=== PATIENT | male | born 1945 | race Caucasian/White ===

== ENCOUNTER 2023-09-05 09:20 | Observation (INO) ==
--- NOTE | 2023-08-14 14:53 | PAT Medication Instructions ---
Medication Instructions Date of Service August 14, 2023 Home Medications azithromycin 250 mg tablet 250 mg PO BID Take morning of surgery With a small sip of water, OTHERWISE NOTHING TO EAT OR DRINK AFTER MIDNIGHT: azithromycin 250 mg tablet 250 mg PO BID Take evening before surgery azithromycin 250 mg tablet 250 mg PO BID Other Notes If you have any questions please call us at [phone] or [phone] or [phone] or [phone]
--- NOTE | 2023-08-23 11:08 | Anesthesiology Consultation ---
Date of Service August 23, 2023 Assessment & Plan (1) Encounter for pre-operative examination: - Infectious disease screening: Per assessment on 08/23/23: No known infectious disease contacts or current infectious disease symptoms. No noted recent Covid positive test result. - Outpatient joint assessment: Pt currently scheduled for inpatient pathway. If surgeon requests review for outpatient joint pathway, patient is not recommended candidate for outpatient joint program from anesthesia standpoint. - PCP visit (08/14/23): "Patient is medically cleared" - Preop testing: Patient refusing labs at [facility] after one tech attempt indicating that he wishes labs to be drawn at [facility]. Patient advised recommendation to obtain preop labs as soon as possible. Patient acceptable risk for surgery pending surgeon-ordered preop labs (TBD [facility]). Chart Review Chart Review: Patient seen in Pre Admission Testing Teaching & Discussion Pre-Anesthesia Teaching/Discussion Notes: Instructed NPO after midnight before surgery,except medications with 15 cc of water. Medication instructions provided according to the [facility] guidelines. History Surgery Operation Date: 09/05/23 13:15 Proposed Procedures p Right Total Knee Arthroplasty - Forrest Wells MD Height/Weight Height: 5 ft 8.5 in Weight: 101.6 kg Allergies Allergy/AdvReac Type Severity Reaction Status Date / Time Penicillins Allergy Severe Hives Verified 08/14/23 13:05 shellfish derived Allergy Severe Hives Verified 08/14/23 13:05 Medications Home Medications Medication Instructions Recorded Confirmed Last Taken tramadol 1 dose PO DAILY PRN Pain 08/23/23 08/23/23 Unknown Past Medical History Medical History History of claustrophobia History of COVID-19 03/2022- mild flu symptoms, treated with paxlovid > no current issues Hx of Lyme disease 1980s, no current issues Hx of [place] spotted fever 2012 Osteoarthritis Exercise / Class Metabolic Activity II 4-5 Yardwork/Stairs/Walk up hill Past Family History Family History Other No family history of adverse response to anesthesia Past Surgical History Surgical History History of tonsillectomy History of cataract surgery left S/P lumbar laminectomy H/O lumbar discectomy H/O tooth extraction x2 07/2023 Past Anesthesia History No Hx of Anesthesia Complications and No Family Hx of Anesthesia Complications History of PONV No Hx of PONV and No Hx of Motion Sickness Social History Smoking Status: Former smoker Do You Dip or Chew Tobacco: No Smoking End Date: Hx Alcohol Use: No Hx Substance Use: No substance use type: does not use Review of Systems Patient had tooth extraction 07/31/23 and 08/10/23 r/t infection/abscess. Site healed and patient completed antibiotics. Patient denies chest pain, shortness of breath, dyspnea on exertion, fever, chills, cough, wheezing, palpitations. Physical Exam Vital Signs VITALS BP 137/74 P 82 TEMP 98.0 SP02 96%RA RESP 16 PHYSICAL Full cervical extension range of motion. Full TMJ range of motion. TMD 3 finger breaths (difficult to palpate) Mallampati Score 1 Dentition: several missing teeth Lungs: clear throughout to auscultation Cardiac: regular rate and rhythm, no murmurs noted Spine: normal Carotid arteries: negative bruit Extremities: no LE edema Testing Electrocardiogram Date: 08/23/23 Findings: + NSR @ (76) Chest X-Ray Date: 08/23/23 FINDINGS: PA and lateral chest radiographs are obtained. No prior studies are available for comparison at the time of dictation. The heart is mildly enlarged noting atherosclerotic calcification of the thoracic aorta. The pulmonary vasculature is noncongested. Nonspecific interstitial thickening is likely chronic. There is bibasilar scarring/atelectasis. The lungs and pleural spaces are otherwise clear. There is no pneumothorax. The skeletal structures are osteopenic. The bony thorax appears intact. Degenerative change is noted in the shoulders and spine. IMPRESSION: Mild cardiomegaly with no active disease in the chest.
--- NOTE | 2023-09-02 18:58 | History & Physical Report ---
Date of Service September 02, 2023 Assessment & Plan (1) Primary osteoarthritis of right knee: Plan: Treatment options discussed with the patient. They have failed conservative measures and wished to proceed with surgery. Risks, benefits and alternatives to surgery including but not limited to infection, DVT, pain, stiffness, need for revision surgery, damage to blood vessels, damage to nerves, PE, , were discussed with the patient and they wish to proceed. Plan for right total knee arthroplasty scheduled for September 05 at [facility] with Dr. Wells. Plan on aspirin 81 mg twice daily for 1 month postop for DVT prophylaxis. Plan on home health therapy postop. All questions answered. Patient will follow-up postoperatively. History of Present Illness Chief Complaint: Right knee pain Primary Care Provider: Cecil Burkett PA-C 78-year-old male with no significant past medical history who presents with ongoing right knee pain. Pain is interfering with his daily activities. He has failed conservative measures and wishes to proceed with surgery. Patient denies headaches, sweats, fevers, chills, double vision, blurred vision, cough, sore throat, dysphagia, chest pain, sob, wheezing, n/v/d/c, numbness, tingling, fatigue, urinary symptoms, mood disorders. ROS positive for right knee pain and stiffness. Allergies Allergy/AdvReac Type Severity Reaction Status Date / Time Penicillins Allergy Severe Hives Verified 08/14/23 13:05 shellfish derived Allergy Severe Hives Verified 08/14/23 13:05 Home Medications Medication Instructions Recorded Confirmed Type tramadol 1 dose PO DAILY PRN Pain 08/23/23 08/23/23 History Past Med/Surg History Medical History History of claustrophobia History of COVID-19 03/2022- mild flu symptoms, treated with paxlovid > no current issues Hx of Lyme disease , no current issues Hx of [place] spotted fever 2011 Osteoarthritis Surgical History History of tonsillectomy History of cataract surgery left S/P lumbar laminectomy H/O lumbar discectomy H/O tooth extraction x2 07/2023 Family History Other No family history of adverse response to anesthesia Social History Smoking Status: Former smoker Tobacco Type: Cigarettes Smoking End Date: ; Second Hand Exposure: No; Do You Dip or Chew Tobacco: No; Tobacco Cessation Education Requested by Patient: No Hx Alcohol Use: No Hx Substance Use: No Preferred Language: Japanese Communication Ability: Effective Hot Metal Mixer Operator Required: No Beliefs That Will Affect Care: None Current Living Situation: Spouse Other Information That Helps Us Care for You: No Feels Safe at Home: Yes Safety Concerns: Feels Safe At This Time Assistive Devices: Glasses Assistive Devices Comment: dental implants Review of Systems All systems reviewed & are unremarkable except as noted in HPI & below Physical Exam Constitutional: well developed and well nourished; no acute distress Eyes: PERRL, conjunctivae normal, anicteric sclerae ENMT: external ear and nose normal, oropharynx normal Neck: trachea midline, no thyromegaly Respiratory: normal respiratory effort, lungs clear to auscultation Cardiovascular: RRR, no murmur, no edema Musculoskeletal: Right knee: Varus alignment. Mild effusion. Tenderness medial joint line. There is crepitation with range of motion. Range of motion is 10 to 120 deg tao. Stable to valgus and varus stress test. Skin: no rashes, warm and dry Neurologic: patellar DTR's 2+ bilat, sensation intact Psychiatric: A+Ox3, euthymic affect Results & Data Diagnostic Findings X-rays right knee demonstrate he has varus knee with subluxation of the femur medially on the tibia with [id number] medial compartment with bone loss. He has tricompartmental arthritic changes. He has tricompartmental arthritic changes.
[~2023-09-05 09:20] MED LIST: ACETAMINOPHEN 500 MG TAB PO SCH; CeleBREX 200 MG CAP PO SCH; FAMOTIDINE 20 MG TAB PO SCH; GABAPENTIN 300 MG CAP PO SCH; LR 500ML BOLUS, THEN 15ML/HR IV SCH; LR 60ML/HR IV SCH; METOCLOPRAMIDE HCL 10 MG TABLET PO SCH; ROPIV 0.5% 246mg, Ketorolac 30mg, EPINEPHrine 0.5mg in NSS INFIL SCH; ROPIVACAINE 0.5% 5 MG/ML 30 ML VIAL ONE; TRANEXAMIC ACID 1,000 MG **IV Intra-op IV SCH; TRANEXAMIC ACID 1,000 MG **IV Pre-op IV SCH; VANCOMYCIN HCL 1,500 MG in SODIUM CHLORIDE 0.9% 500 ML IV SCH; dexAMETHasone**PF** 10 MG/ML VIAL IV SCH
--- OUTSIDE RECORDS SUMMARY | 2023-09-05 10:26 | External Medical Summary | Summary of Care ---
Author Name Unknown Organization [facility] Address [address] [place] [address] Phone [phone] Care Team Providers Care Customer Experience Manager Name Role Phone Cecil Burkett PA-C Primary Care Provider [phone] Reason for Visit * Reason Comments Outpatient Testing Encounter Details Date Type Department Care Team (Late st Contact Info) Description 08/27/2023 2:00 PM [facility] Laboratory Laboratory Patient Service [address] [phone] [address] Pre-procedural laboratory examination* Allergies Active Allergy Reactions Criticality Noted Date Comments Penicillins Rash 09/12/2017 Shellfish Allergy Anaphylaxis High 09/12/2017 documented as of this encounter (statuses as of 08/27/2023) Medications Medication Sig Dispensed Refills Start Date End Date Status Turmeric 500 MG Oral Capsule Take 1 Capsule by mouth in the morning. 0 Active tiZANidine HCl 2 MG Oral Tablet (Zanaflex) Take 1 Tablet by mouth every 8 hours as needed for Muscle spasms. 90 Tablet 0 09/05/2022 Active traMADol HCl 50 MG Oral Tablet (Ultram) Take 1 Tablet by mouth every 6 hours as needed for Pain, Severe. 30 Tablet 0 06/27/2023 Active Erythromycin Base 250 MG Oral Tablet 0 08/08/2023 Active Betamethasone Valerate 0.1 % External Lotion Apply to the scalp/behind the ears twice daily for 1-2 weeks as needed 60 mL 51 08/21/2023 Active documented as of this encounter (statuses as of 08/27/2023) Active Problems Problem Noted Date Diagnosed Date Chronic kidney disease, stage 3a 12/26/2021 Overview: Per CKD protocol Unspecified inflammatory spondylopathy, lumbar r egion 06/21/2021 Osteoarthritis of spine with radiculopathy, cerv ical region 05/13/2018 Osteoarthritis of spine with radiculopathy, lumb ar region 05/13/2018 H/o Lyme disease 10/29/2017 documented as of this encounter (statuses as of 08/27/2023) Resolved Problems Problem Noted Date Diagnosed Date Resolved Date Prediabetes 12/26/2021 03/01/2023 Overview: Per Prediabetes protocol Chronic kidney disease with symptom management only, stage 3 (moderate) 04/02/202009/2020 Tinea pedis of both feet 10/04/201702/2020 documented as of this encounter (statuses as of 08/27/2023) Immunizations Name Administration Dates Next Due TDAP (age 10 and older)(Boostrix) 04/16/2012 documented as of this encounter Social History Tobacco Use Types Packs/Day Years Used Date Smoking Tobacco: Never Smokeless Tobacco: Never Alcohol Use Standard Drinks/Week Comments No 0 (1 standard drink = 0.6 oz pur e alcohol) PHQ-2 Answer Date Recorded PHQ-2 Score 0 07/06/2020 Hunger Vital Sign Answer Date Recorded Within the past 12 months, y ou worried that your food would run out before you got the money to buy more. Never true 06/27/20 23 Within the past 12 months, t he food you bought just didn't last and you didn't have money to get more. Never true 06/27/2023 Sex and Gender Information Value Date Recorded Sex Assigned at Male 07/29/2019 11:07 AM EST Gender Identity Male 07/29/2019 11:07 AM EST Sexual Orientation Straight 07/29/2019 11 :07 AM EST Job Start Date Occupation Industry Not on file Not on file Not on file documented as of this encounter Miscellaneous Notes * Addendum Note - Delano Davidson TECH - 08/27/2023 2:09 PM ESTAddended by: DELANO DAVIDSON on: 08/27/2023 02:09 PM Modules accepted: Orders documented in this encounter Plan of Treatment Upcoming Encounters Date Type Department Care Team ([facility] st Contact Info) Description 01/30/2024 9:20 AM EDT Office Visit Dermatology [address] [phone] Obed Dawkins PA-C [address] [place] [address] [phone] Pending Results Name Type Priority Associated Diagnoses Date /Time BASIC METABOLIC PANEL Lab Routine Pre-procedural laboratory examination 08/27/2023 2:09 PM EST CBC WITH WBC DIFFERENTIAL Lab Routine Pre-procedural laboratory examination 08/27/2023 2:09 PM EST PT INR Lab Routine Pre-procedural laboratory examination 08/27/2023 2:09 PM EST URINALYSIS WITH MICROSCOPIC EXAM Lab Routine Pre-procedural laboratory examination 08/27/2023 2:09 PM EST TYPE AND SCREEN Lab Routine Pre-procedural laboratory examination 08/27/2023 2:10 PM EST CBC Lab Routine Pre-procedural laboratory examination 08/27/2023 2:09 PM EST DIFFERENTIAL, AUTOMATED Lab Routine Pre-procedural laboratory examination 08/27/2023 2:09 PM EST Scheduled Orders Name Type Priority Associated Diagnoses Orde r Schedule APTT Lab Routine Pre-procedural laboratory examination Ordered: 08/27/2023 TYPE AND SCREEN Lab Routine Pre-procedural laboratory examination Expected: 08/28/2023, Expires: 09/27/2024 Health Maintenance Due Date Last Done Comments COVID-19 Vaccine (#1) 1945 Zoster Vaccines (1 of 2) 1993 Pneumococcal Vaccine: 65+ Years (1 - PCV) 01/21/2008 Depression Screening 07/06/2021 07/06/2020 Albumin/Creatinine Ratio 07/09/2021 07/09/2020 DTaP,Tdap,and Td Vaccines (2 - Td or Tdap) 04/16/2022 04/16/2012 Influenza Vaccine (FLU shot) (#1) 2023 GFR 08/15/2023 02/13/2023, 01/19, 07/20/2021, Additional history exists CKD HGB USE SMARTSET 44625 02/14/202402/13, 02/15/2022, 07/20/2021, Additional history exists CKD PHOS USE SMARTSET 15425 02/14/202401/19, 02/15/2022, 07/20/2021, Additional history exists GARDASIL-HPV IMMUNIZATION SERIES Aged Out No longer eligible based on patient's age to complete this topic Hepatitis B Aged Out No longer eligi ble based on patient's age to complete this topic MENINGOCOCCAL (MENACTRA/MENVEO) Aged Out No longer eligible based on patient's age to complete this topic documented as of this encounter Medical Devices Not on filedocumented as of this encounter Visit Diagnoses Diagnosis Pre-procedural laboratory examination- Primary documented in this encounter Advance Directives Latest Code Status on File Code Status Date Activated Date Inactivated Comments Full Code 08/19/2020 6:08 AM 08/19/2020 4:35 PM Thi s order reflects the patients wishes and were consensually agreed upon. Care Teams Customer Experience Manager Relationship Specialty Start Date End Date Cecil Burkett PA-C [address] [place], [place] [address] [id number] PCP - General Physician Assistant Merchandise Manager 07/29/19 documented as of this encounter
--- OUTSIDE RECORDS SUMMARY | 2023-09-05 10:26 | External Medical Summary | Summary of Care ---
Author Name Unknown Organization [facility] Address [address] [place] [address] Phone [phone] Care Team Providers Care Basket Grader Name Role Phone Cecil Burkett PA-C Primary Care Provider [phone] Reason for Visit * Reason Comments Outpatient Testing Encounter Details Date Type Department Care Team (Late st Contact Info) Description 08/27/2023 2:00 PM [facility] Laboratory Laboratory Patient Service [address] [phone] [address] Pre-procedural laboratory examination* Allergies Active Allergy Reactions [...] Upcoming Encounters Date Type Department Care Team ([facility] st Contact Info) Description 01/30/2024 9:20 AM EDT Office Visit Dermatology [address] [phone] Obed Dawkins PA-C [address] [place] [address] [phone] Pending Results Name Type Priority Associated Diagnoses Date /Time BASIC METABOLIC PANEL Lab Routine Pre-procedural laboratory examination 08/27/2023 2:09 PM EST CBC WITH WBC DIFFERENTIAL Lab Routine Pre-procedural laboratory examination 08/27/2023 2:09 PM EST PT INR Lab Routine Pre-procedural laboratory examination 08/27/2023 2:09 PM EST APTT Lab Routine Pre-procedural laboratory examination 08/27/2023 2:10 PM EST URINALYSIS WITH MICROSCOPIC EXAM Lab Routine Pre-procedural laboratory examination 08/27/2023 2:09 PM EST TYPE AND SCREEN Lab Routine Pre-procedural laboratory examination 08/27/2023 2:10 PM EST CBC Lab Routine Pre-procedural laboratory examination 08/27/2023 2:09 PM EST DIFFERENTIAL, AUTOMATED Lab Routine Pre-procedural laboratory examination 08/27/2023 2:09 PM EST Scheduled Orders Name Type Priority Associated Diagnoses Orde r Schedule TYPE AND SCREEN Lab Routine Pre-procedural laboratory [...] Additional history exists CKD HGB USE SMARTSET 44972 02/14/202402/13, 02/15/2022, 07/20/2021, Additional history exists CKD PHOS USE SMARTSET 57123 02/14/202401/19, 02/15/2022, 07/20/2021, Additional history exists GARDASIL-HPV [...] and were consensually agreed upon. Care Teams Basket Grader Relationship Specialty Start Date End Date Cecil Burkett PA-C [address] [place], [place] [address] [address] PCP - General Physician Candy Supervisor 07/29/19 documented as of this encounter
--- OUTSIDE RECORDS SUMMARY | 2023-09-05 10:26 | External Medical Summary | Summary of Care ---
Author Name Unknown Organization [facility] Address [address] [place] [address] Phone [phone] Care Team Providers Care Oxygen Equipment Aide Name Role Phone Cecil Burkett PA-C Primary Care Provider [phone] Reason for Visit * Reason Comments Outpatient Testing Encounter Details Date Type Department Care Team (Late st Contact Info) Description 08/27/2023 2:00 PM [facility] Laboratory Laboratory Patient Service [address] [phone] [address] Pre-procedural laboratory examination* Allergies Active Allergy Reactions [...] Upcoming Encounters Date Type Department Care Team ([facility] st Contact Info) Description 01/30/2024 9:20 AM EDT Office Visit Dermatology [address] [phone] Obed Dawkins PA-C [address] [place] [address] [phone] Pending Results Name Type Priority Associated Diagnoses [...] Additional history exists CKD HGB USE SMARTSET 30769 02/14/202402/13, 02/15/2022, 07/20/2021, Additional history exists CKD PHOS USE SMARTSET 31146 02/14/202401/19, 02/15/2022, 07/20/2021, Additional history exists GARDASIL-HPV [...] and were consensually agreed upon. Care Teams Oxygen Equipment Aide Relationship Specialty Start Date End Date Cecil Burkett PA-C [address] [place], [place] [address] [address] PCP - General Physician Recyclable Materials Distributor 07/29/19 documented as of this encounter
--- OUTSIDE RECORDS SUMMARY | 2023-09-05 10:26 | External Medical Summary | Summary of Care ---
Author Name Unknown Organization [facility] Address [address] [place] [address] Phone [phone] Care Team Providers Care Educational Fundraising Director Name Role Phone Cecil Burkett PA-C Primary Care Provider [phone] Reason for Visit * Reason Comments Outpatient Testing Encounter Details Date Type Department Care Team (Late st Contact Info) Description 08/27/2023 2:00 PM [facility] Laboratory Laboratory Patient Service [address] [phone] [address] Pre-procedural laboratory examination* Allergies Active Allergy Reactions [...] Upcoming Encounters Date Type Department Care Team ([facility] st Contact Info) Description 01/30/2024 9:20 AM EDT Office Visit Dermatology [address] [phone] Obed Dawkins PA-C [address] [place] [address] [phone] Pending Results Name Type Priority Associated Diagnoses [...] Additional history exists CKD HGB USE SMARTSET 29018 02/14/202402/13, 02/15/2022, 07/20/2021, Additional history exists CKD PHOS USE SMARTSET 13675 02/14/202401/19, 02/15/2022, 07/20/2021, Additional history exists GARDASIL-HPV [...] and were consensually agreed upon. Care Teams Educational Fundraising Director Relationship Specialty Start Date End Date Cecil Burkett PA-C [address] [place], [place] [address] [address] PCP - General Physician Hotel Director 07/29/19 documented as of this encounter
--- OUTSIDE RECORDS SUMMARY | 2023-09-05 10:26 | External Medical Summary | Summary of Care ---
Author Name Unknown Organization [facility] Address [address] [place] [address] Phone [phone] Care Team Providers Care Batch Operator Name Role Phone Cecil Burkett PA-C Primary Care Provider [phone] Reason for Visit * Reason Comments Outpatient Testing Encounter Details Date Type Department Care Team (Late st Contact Info) Description 08/27/2023 2:00 PM [facility] Laboratory Laboratory Patient Service [address] [phone] [address] Pre-procedural laboratory examination* Allergies Active Allergy Reactions [...] Upcoming Encounters Date Type Department Care Team ([facility] st Contact Info) Description 01/30/2024 9:20 AM EDT Office Visit Dermatology [address] [phone] Obed Dawkins PA-C [address] [place] [address] [phone] Pending Results Name Type Priority Associated Diagnoses Date /Time BASIC METABOLIC PANEL Lab Routine Pre-procedural laboratory examination 08/27/2023 2:09 PM EST CBC WITH WBC DIFFERENTIAL Lab Routine Pre-procedural laboratory examination 08/27/2023 2:09 PM EST PT INR Lab Routine Pre-procedural laboratory examination 08/27/2023 2:09 PM EST URINALYSIS WITH MICROSCOPIC EXAM Lab Routine Pre-procedural laboratory examination 08/27/2023 2:09 PM EST CBC Lab Routine Pre-procedural laboratory [...] Additional history exists CKD HGB USE SMARTSET 17291 02/14/202402/13, 02/15/2022, 07/20/2021, Additional history exists CKD PHOS USE SMARTSET 81169 02/14/202401/19, 02/15/2022, 07/20/2021, Additional history exists GARDASIL-HPV [...] and were consensually agreed upon. Care Teams Batch Operator Relationship Specialty Start Date End Date Cecil Burkett PA-C [address] [place] [address] [place] [address] PCP - General Physician Ski Patrol Director 07/29/19 documented as of this encounter
--- OUTSIDE RECORDS SUMMARY | 2023-09-05 10:26 | External Medical Summary | Summary of Care ---
Author Name Unknown Organization [facility] Address [address] [place] [address] Phone [phone] Care Team Providers Care Services Account Manager Name Role Phone Cecil Burkett PA-C Primary Care Provider [phone] Reason for Visit * Reason Onset Date Comments Health Maintenance 08/30/2023 Encounter Details Date Type Department Care Team ([facility] Contact Info) Description 08/30/[address] [place] [phone] Cecil Burkett PA-C [address] [place] [phone] Health Maintenance Allergies Active Allergy Reactions Criticality Noted Date Comments Penicillins Rash 09/12/2017 Shellfish Allergy Anaphylaxis High 09/12/2017 documented as of this encounter (statuses as of 08/30/2023) Medications Medication Sig Dispensed Refills Start Date [...] as of this encounter (statuses as of 08/30/2023) Active Problems Problem Noted Date Diagnosed Date Chronic kidney disease, stage 3a 12/26/2021 Overview: Per CKD protocol Unspecified inflammatory spondylopathy, lumbar r egion 06/21/2021 Osteoarthritis of spine with radiculopathy, cerv ical region 05/13/2018 Osteoarthritis of spine with radiculopathy, lumb ar region 05/13/2018 H/o Lyme disease 10/29/2017 documented as of this encounter (statuses as of 08/30/2023) Resolved Problems Problem Noted Date Diagnosed Date Resolved Date Prediabetes 12/26/2021 03/01/2023 Overview: Per Prediabetes protocol Chronic kidney disease with symptom management only, stage 3 (moderate) 04/02/202009/2020 Tinea pedis of both feet 10/04/201702/2020 documented as of this encounter (statuses as of 08/30/2023) Immunizations Name Administration Dates Next Due TDAP [...] as of this encounter Miscellaneous Notes * Telephone Encounter - Megha Mondragon LPN - 08/30/2023 10:56 AM EST Care Gaps Comprehensive Care Outreach Last Office/Telemedicine Visit: 08/14/2023 (in office), Visit date not found (telemedicine) Next Office Visit: Visit date not found Hemoglobin AIC Results: Lab Results Component Value Date/Time HEMOGLOBIN A1C - [facility] 5.4 02/13/2023 09:18 AM HEMOGLOBIN A1C - [facility] 5.9 (H) 07/20/2021 04:15 PM HEMOGLOBIN A1C - [facility] 5.6 01/16/2018 03:26 PM Reviewed Health Maintenance below: Health Maintenance Topic Date Due COVID-19 Vaccine (1) Never done Zoster Vaccines (1 of 2) Never done Pneumococcal Vaccine: 65+ Years (1 - PCV) Never done Depression Screening 07/06/2021 Albumin/Creatinine Ratio 07/09/2021 DTaP,Tdap,and Td Vaccines (2 - Td or Tdap) 04/16/2022 Influenza Vaccine (FLU shot) (1) Never done Care Gap Outreach Action Taken: [employer] message sent documented in this encounter Plan of Treatment Upcoming Encounters Date Type Department Care Team ([facility] Contact Info) Description 01/30/2024 9:20 AM EDT Office Visit Dermatology [address] [phone] Obed Dawkins PA-C [address] [place] [phone] Health Maintenance Due Date Last Done Comments COVID-19 Vaccine (#1) 1945 Zoster Vaccines (1 of 2) 1993 Pneumococcal Vaccine: 65+ Years (1 - PCV) 01/21/2008 Depression Screening 07/06/2021 07/06/2020 Albumin/Creatinine Ratio 07/09/2021 07/09/2020 DTaP,Tdap,and Td Vaccines (2 - Td or Tdap) 04/16/2022 04/16/2012 Influenza Vaccine (FLU shot) (#1) 2023 CKD PHOS USE SMARTSET 05186 02/14/202401/19, 02/15/2022, 07/20/2021, Additional history exists GFR 02/25/2024 08/27/2023, 01/19, 02/15/2022, Additional history exists CKD HGB USE SMARTSET 73427 08/27/202408/27, 08/27/2023, 02/13/2023, Additional history exists GARDASIL-HPV IMMUNIZATION SERIES Aged [...] Not on filedocumented as of this encounter Advance Directives Latest Code Status on File Code Status Date Activated Date Inactivated Comments Full Code 08/19/2020 6:08 AM 08/19/2020 4:35 PM Thi s order reflects the patients wishes and were consensually agreed upon. Care Teams Services Account Manager Relationship Specialty Start Date End Date Cecil Burkett PA-C [address] [place], [place] [id number] [phone] PCP - General Physician Care Specialist 07/29/19 documented as of this encounter
--- OUTSIDE RECORDS SUMMARY | 2023-09-05 10:26 | External Medical Summary ---
Author Name Unknown Address Unknown Organization [id number][place] [facility] [place] [address] [facility] [address] Laboratory Report Ordering Provider Test Date Status IMELDA LIN 08/27/2023 14:10:34 Final Anticoagulation may affect t esting. Refer to [facility] Test Catalog for a list of effects. Observation Date Value Abnormality Reference (Units ) Status aPTT panel - Platelet poor plasma 08/27/2023 14:10:34 32 21-38 (seconds) Final Performing Location [facility] [place] [address] [facility] [address]
--- OUTSIDE RECORDS SUMMARY | 2023-09-05 10:27 | External Medical Summary ---
Author Name Unknown Address Unknown Organization [id number][place] [place] [address] [place] [address] Laboratory Report Ordering Provider Test Date Status IMELDA LIN 08/27/2023 14:09:51 Final Observation Date Value Abnormality Reference (Units ) Status Color of Urine by Auto 08/27/2023 14:09:51 Light Yellow Colorless, Light Yellow, Yellow, Dark Yellow Final Clarity, Urine 08/27/2023 14:09:51 Clear Clear Final Glucose [Mass/volume] in Urine by Automated test strip 08/27/2023 14:09:51 Negative Negative (mg/dL) Final Bilirubin.total [Presence] in Urine by Automated test strip 08/27/2023 14:09:51 Negative Negative Final Ketones [Mass/volume] in Urine by Automated test strip 08/27/2023 14:09:51 Negative Negative (mg/dL) Final Specific gravity, Urine 08/27/2023 14:09:51 1.008 1.003-1.030 Final Hemoglobin [Presence] in Urine by Automated test strip 08/27/2023 14:09:51 Negative Negative Final pH, Urine 08/27/2023 14:09:51 5.5 5.0-7.5 (Units) Final Protein [Mass/volume] in Urine by Automated test strip 08/27/2023 14:09:51 Negative Negative (mg/dL) Final Urobilinogen [Mass/volume] in Urine by Automated test strip 08/27/2023 14:09:51 Normal Normal (mg/dL) Final Nitrite [Presence] in Urine by Automated test strip 08/27/2023 14:09:51 Negative Negative Final Leukocyte esterase [Presence] in Urine by Automated test strip 08/27/2023 14:09:51 Negative Negative Final RBC, Urine 08/27/2023 14:09:51 0-2 0-2 (/HPF) Final WBC, Urine 08/27/2023 14:09:51 0-2 0-2 (/HPF) Final Bacteria [#/area] in Urine sediment by Microscopy high power field 08/27/2023 14:09:51 0-25 0-25 (/HPF) Final Performing Location [facility] [place] [facility] [address] [facility] [address]
--- OUTSIDE RECORDS SUMMARY | 2023-09-05 10:27 | External Medical Summary ---
Author Name Unknown Address Unknown Organization [id number]:[place] [facility] [place] [address] [facility] [address] Laboratory Report Ordering Provider Test Date Status IMELDA LIN 08/27/2023 14:09:51 Final Observation Date Value Abnormality Reference (Units ) Status WBC, Total 08/27/2023 14:09:51 8.78 4.00-10.80 (K/uL) Final RBC 08/27/2023 14:09:51 4.72 4.50-5.25 (M/uL) Final Hemoglobin 08/27/2023 14:09:51 15.3 14.0-16.8 (g/dL) Final HCT 08/27/2023 14:09:51 45.1 40.0-48.4 (%) Final MCV 08/27/2023 14:09:51 95.6 82.0-99.5 (fL) Final MCH 08/27/2023 14:09:51 32.4 27.0-34.0 (pg) Final MCHC 08/27/2023 14:09:51 33.9 32.0-36.0 (g/dL) Final RDW 08/27/2023 14:09:51 12.2 11.5-15.5 (%) Final Platelets 08/27/2023 14:09:51 231 140-400 (K/uL) Final MPV 08/27/2023 14:09:51 9.1 6.6-11.1 (fL) Final Nucleated erythrocytes/100 leukocytes [Ratio] in Blood by Automated count 08/27/2023 14:09:51 0 <=0 (/100 WBCs) Final Performing Location [facility] [place] [address] [facility] [address]
--- OUTSIDE RECORDS SUMMARY | 2023-09-05 10:27 | External Medical Summary ---
Author Name Unknown Address Unknown Organization [id number]:[facility] [place] - [address] [address] Laboratory Report Ordering Provider Test Date Status IMELDA LIN 08/27/2023 14:09:51 Final Observation Date Value Abnormality Reference (Units ) Status SYNC LEUKOCYTES IN BLOOD BY AUTOMATED COUNT 08/27/2023 14:09:51 8.78 4.00-10.80 (K/uL) Final Segs 08/27/2023 14:09:51 64.3 40.0-75.0 (%) Final Lymphs % 08/27/2023 14:09:51 22.6 18.0-42.0 (%) Final Monos 08/27/2023 14:09:51 7.6 1.0-11.0 (%) Final Eosinophils 08/27/2023 14:09:51 4.2 0.0-6.0 (%) Final Basos 08/27/2023 14:09:51 0.8 0.0-2.0 (%) Final Immature Granulocyte, Percent 08/27/2023 14:09:51 0.5 0.0-2.0 (%) Final Absolute Segs 08/27/2023 14:09:51 5.65 1.80-7.70 (K/uL) Final Lymphs, absolute 08/27/2023 14:09:51 1.98 1.00-4.80 (K/ul) Final Monos, Abs 08/27/2023 14:09:51 0.67 0.00-1.10 (K/uL) Final Eos, Abs 08/27/2023 14:09:51 0.37 0.00-0.70 (K/uL) Final Basos, Abs 08/27/2023 14:09:51 0.07 0.00-0.20 (K/uL) Final Immature Granulocytes, Number 08/27/2023 14:09:51 0.04 0.00-0.20 (K/uL) Final Performing Location [facility] [place] - [address] [facility] [address]
--- OUTSIDE RECORDS SUMMARY | 2023-09-05 10:27 | External Medical Summary ---
Author Name Unknown Address Unknown Organization K01:[facility] [place] [address] [place] [address] Laboratory Report Ordering Provider Test Date Status IMELDA LIN 08/27/2023 14:09:51 Final Observation Date Value Abnormality Reference (Units ) Status BUN 08/27/2023 14:09:51 20 6-20 (mg/dL) Final Creatinine 08/27/2023 14:09:51 1.2 0.6-1.2 (mg/dL) Final Glomerular filtration rate/1.73 sq M.predicted [Volume Rate/Area] in Serum, Plasma or Blood by Creatinine-based formula (CKD-EPI) 08/27/2023 14:09:51 60 >=60 (mL/min) Final eGFR is calculated based on the CKD-EPI 2020 equation SODIUM 08/27/2023 14:09:51 136 135-146 (m mol/L) Final Potassium 08/27/2023 14:09:51 4.0 3.5-5.1 (m mol/L) Final Cl 08/27/2023 14:09:51 99 98-107 (mm ol/L) Final CO2 08/27/2023 14:09:51 24 22-32 (mmo l/L) Final Anion gap 08/27/2023 14:09:51 13 7-15 (mmol /L) Final Glucose 08/27/2023 14:09:51 99 70-120 (mg /dL) Final Calcium 08/27/2023 14:09:51 9.8 8.4-10.2 ( mg/dL) Final Performing Location [facility] [place] [address] [place] [address]
[2023-09-05] MEDS ORDERED: HYDROmorphone INJ 2 MG/ML SYR/VIAL IV PRN (10:48)
[2023-09-05] MEDS ORDERED: ATROPINE SULFATE 0.1 MG/ML 10ML SYR IV PRN (10:48)
[2023-09-05] MEDS ORDERED: ONDANSETRON INJ 2 MG/ML 2 ML VIAL IV PRN ×2 (10:48→15:41)
[2023-09-05] MEDS ORDERED: ePHEDrine sulfate 50 MG/ML AMP IV PRN (10:48)
[2023-09-05] MEDS ORDERED: MIDAZOLAM HCL 1 MG/ML 2ML VIAL ONE (11:37)
[2023-09-05] MEDS ORDERED: fentaNYL citrate PF 100 MCG/2 ML VIAL ONE (11:37)
--- NOTE | 2023-09-05 11:51 | History & Physical Bridge Note ---
Date of Service September 05, 2023 History & Physical Bridge Note I have examined the patient, reviewed the History & Physical and in the interval since the performance of the History & Physical I have noted the following changes of clinical significance: no changes noted
[2023-09-05] MEDS ORDERED: ORTHO JOINT ANESTHETIC ONE (11:58)
[2023-09-05] MEDS ORDERED: PHENYLEPHRINE HCL 10 MG/ML VIAL ONE (13:11)
[2023-09-05] MEDS ORDERED: PROPOFOL IV EMULSION 10 MG/ML 20 ML VIAL IV ONE ×2 (13:11→14:07)
--- NOTE | 2023-09-05 14:42 | Post Operative Brief Note ---
Immediate Post Op Note v1 Date of Surgery September 05, 2023 Pre & Post Diagnosis Operation Date: 09/05/23 12:40 Pre-Op Diagnosis: Right Knee Osteoarthritis Post-Op Diagnosis: Right Knee Osteoarthritis I identified the patient and participated in the time-out.: Yes Procedure Operation Date: 09/05/23 12:40 Actual Procedures p Right Total Knee Arthroplasty(Right), mina and Acticoat superficial wound VAC- Forrest Wells MD Surgeon Forrest Wells MD Certified Scrum Master Fernando ZHU Estimated Blood Loss 5 Findings Consistent with Post-Op Diagnosis Specimens Bone cuts Drains Hemovac Drain Anesthesia Type MAC Spinal Regional Complications none Disposition Disposition: Recovery Room Overlapping Procedure I was immediately available: during the entire case.
--- NOTE | 2023-09-05 14:50 | Operative Report ---
Post Operative Report Pre & Post Diagnosis Operation Date: 09/05/23 12:40 Pre-Op Diagnosis: Right Knee Osteoarthritis Post-Op Diagnosis: Right Knee Osteoarthritis I identified the patient and participated in the time-out.: Yes Procedure Operation Date: 09/05/23 12:40 Actual Procedures p Right Total Knee Arthroplasty(Right), application mina and Acticoat s uperficial wound VAC- Forrest Wells MD Surgeon Forrest Wells MD Manager Of Corporate Communications Fernando ZHU Estimated Blood Loss 5 Findings Consistent with Post-Op Diagnosis Specimens Bone cuts Drains 2 Hemovac Anesthesia Type MAC Spinal Regional Complications none Disposition Disposition: Recovery Room Indications 78-year-old male with very severe bilateral knee osteoarthritis with end-stage [id number] knees with varus alignment tricompartmental arthritic changes. Description of Procedure The patient was taken to the operating room and anesthetized under spinal MAC regional block. Patient was placed supine on the the operating table. A pneumatic tourniquet was placed about the right upper thigh. The knee exam demonstrated 15 to 115 degrees range of motion with stiff knee no instability moderate effusion. The involved leg was elevated exsanguinated with Esmarch bandage and the pneumatic tourniquet was raised to 325 millimeters mercury. A longitudinal incision was made across the anterior knee. Skin flaps were elevated. An incision was made into the medial retinaculum and extended up into the mid third of the quadriceps tendon and extended down to the tibial tubercle. Intra-articular findings demonstrated tricompartmental osteoarthritis [id number] medial lateral compartments with grade 3 patellofemoral arthritis and absent ACL and multiple loose bodies and posterior condylar osteophytes. There is also chondrocalcinosis possible, calcium pyrophosphate disease. There was a large loose body in the suprapatellar pouch and there was calcification attached to the undersurface of the quad tendon proximally in the midline with large bony fragment attached to the tendon. There is also bilateral meniscus tears. The knee was exposed by excising ACL remnants, posterior cruciate ligament and menisci. All loose bodies were excised including the calcification attached to the quadriceps tendon which was shelled out from the quadriceps tendon using sharp dissection and electrocautery device. The infrapatellar fat pad was resected. The fat pad over the anterior femur at the upper aspect of the articular surface was resected for placement of the component in that area. A subperiosteal peel lateral release was performed around the patella. The [employer] journey 2.0 total knee arthroplasty system was utilized for the procedure. The custom femoral cutting guide was pinned in position. The distal femoral cut was made. The size 7, 5 in 1 cutting block was placed. The anterior posterior and chamfer cuts were made. The knee was extended and a free hand cut technique was performed to the patella. The patella width was measured and the width was reproduced using a 38 mm symmetrical patella component. The excess lateral facet was beveled off to prevent any impingement. 3 drill holes are made for the patella component pegs. The tibia was then subluxed. The custom tibial cutting block was pinned in position and the proximal tibial cut was made with the oscillating saw. Flexion and extension gaps were balanced. Medial and posterior medial releases were required. Posterior femoral condylar osteophytes were removed with angled curette and curved osteotome. The size 7 right tibial trial was externally rotated in line with the tibial tubercle and pinned in position. The punch for the stem was used. The femoral trial was ins erted and centered the notch cutting devices were used and the collet was placed. Tibial trials were used for the insert. The size 11 trial gave balanced ligaments through full range of motion. Patella tracking was assessed with range of motion. The patella tracked centrally. The trials were removed. The Orthomix anesthetic cocktail was injected per protocol. The cut bone surfaces and soft tissue were copiously irrigated with pulsatile lavage saline solution. The final components were cemented with Refobacin cement. The final components were [employer]hew journey 2.0 posterior stabilized 7 right femoral component, 7 right tibial component, 11 mm right posterior stabilized tibial polyethylene component and the 38 mm symmetrical patella polyethylene patella Xperience irrigation was placed over metal tray prior to polyethyle insertion. After the cement cured, the knee was then copiously irrigated with pulsatile lavage Xperience solution. 2 drains were brought out laterally connected to Hemovac. The quadriceps tendon and medial retinaculum were closed with interrupted [id number] #1 Vicryl sutures. The knee was taken through full range of motion and repair was secure. Knee range of motion was 0 through 130 degrees. The subcutaneous tissues were closed with 2-0 Vicryl sutures. The skin was closed with latosha. A mina and Acticoat superficial wound VAC was applied. The tourniquet was let down and the patient had good capillary refill to the extremity. The patient tolerated the procedure well. My physician assistant designer Fernando ZHU participated as surveyor's assistant and was integral part in all aspects of the procedure including prepping, draping, leg positioning, soft tissue retraction, instrument management and assisted in the closure , wound VAC application and will participate in postoperative care the patient. I attest to the content of the Intraoperative Record and any orders documented therein. Any exceptions are noted below.
[2023-09-05] MEDS: fentaNYL citrate PF 100 MCG/2 ML VIAL IV PRN ×2 (15:08→15:13)
--- NOTE | 2023-09-05 15:18 | XRay Report ---
TWO VIEWS RIGHT KNEE CLINICAL HISTORY: Postoperative examination. FINDINGS: AP and crosstable lateral portable views of the right knee are obtained. A right knee arthr oplasty is in near anatomic alignment. There has been undersurface remodeling of the patella. No acut e fracture is seen. There are expected postoperative changes around the knee including skin clips, a surgical drain, soft tissue edema, and subcutaneous gas. IMPRESSION: Expected postoperative changes status post right knee arthroplasty. No acute fracture is seen. ACT 112: Negative or not required by law. Electronically signed by: Garett Mckoy M.D. 09/05/2023 3:16 PM
[2023-09-05] MEDS ORDERED: MAGNESIUM HYDROXIDE SUSP 30 ML UDC PO PRN (15:41)
[2023-09-05] MEDS ORDERED: TAMSULOSIN HCL 0.4 MG CAP PO PRN (15:41)
[2023-09-05] MEDS ORDERED: HYDROmorphone INJ 0.5 MG/0.5 ML SYR IV PRN (15:41)
[2023-09-05] MEDS ORDERED: bisacodyL 10 MG SUPP PR PRN (15:41)
[2023-09-05] MEDS ORDERED: NALOXONE HCL 0.4 MG/1 ML VIAL/CARP IV PRN (15:41)
[2023-09-05] MEDS ORDERED: VANCOMYCIN CONSULT ACTIVE PRN (15:41)
[2023-09-05] MEDS ORDERED: METOCLOPRAMIDE HCL INJ 5 MG/ML 2 ML VIAL IV PRN (15:41)
--- NOTE | 2023-09-05 15:43 | Anesthesiology Progress Note ---
Date of Service September 05, 2023 Anesthesia Post Procedure Vital Signs Vital Signs: Temp Pulse Pulse Resp BP Pulse Ox O2 Del Method 09/05/23 15:25 36.3 C L 88 12 146/93 H 95 Room Air 09/05/23 15:15 85 18 119/68 96 Room Air 09/05/23 15:05 86 20 113/62 95 Room Air 09/05/23 14:55 85 16 112/65 98 Oxymask 09/05/23 14:49 36.1 C L 80 12 95/52 L 96 Oxymask 09/05/23 09:40 36.7 C 114 H 22 150/95 H 99 Room Air O2 Flow Rate 09/05/23 15:25 09/05/23 15:15 09/05/23 15:05 09/05/23 14:55 4 09/05/23 14:49 4 09/05/23 09:40 Pain Intensity Right Knee: Pain Intensity: 3 Transfer of Care Handoff Completed per policy Notes Mental Status: alert / awake / arousable Patient Amnestic to Procedure: Yes Nausea / Vomiting: adequately controlled Pain: adequately controlled Airway Patency, RR, SpO2: stable & adequate BP & HR: stable & adequate Hydration State: stable & adequate Neuraxial Anesthesia: was administered and sensory block is resolving Anesthetic Complications: no major complications apparent
[2023-09-05] MEDS: SODIUM CHLORIDE 0.9% 1,000 ML IV SCH (15:55)
--- NOTE | 2023-09-05 16:52 | Consultation ---
Date of Consultation September 05, 2023 Assessment & Plan (1) Primary osteoarthritis of right knee: (2) Status post right knee replacement: Plan R Knee Osteoarthritis S/P R Total knee arthroplasty POD #[address] Wells EBL # 5ml pain/wound management per orthopedics activity/therapy and diet as per orthopedics bowel regimen per orthopedics Fortunately, Mr. Cheema does not have any medical comorbidities and does not take any prescription medications. We will follow along closely and monitor post op vitals and labs. DVT ppx: per primary, ASA BID FULL CODE PCP: Dr. Cecil Burkett Pt was seen and examined in collaboration with Dr. Maria, please see addendum Thank you for this consultation. We will follow the patient with you during their hospital stay. You can reach a member of the [facility] Hospitalist Team 12/03 via hospitalist role on tiger text. Supervising Physician Co-Signing Physician Notes 78 year old man who had right total knee arthroplasty for osteoarthritis today. Reports surgical site pain is well controlled Exam, General: Well hydrated, no acute distress and not ill appearing Eyes: PERRL, conjunctivae normal, not pale, anicteric sclerae, EOM intact bilaterally ENMT: External ear and nose normal, oropharynx normal Respiratory: Normal respiratory effort, no respiratory distress, lungs clear to auscultation, no crackles and no wheezes Cardiovascular: Pulse is RRR.S1 S2 Gastrointestinal (Abdomen): Abdomen is not distended, soft, non-tender to palpation, no guarding, no palpable hepatosplenomegaly, normal bowel sounds Musculoskeletal: Right knee bandaged, drain in situ, Neurologic: Alert and oriented x 3, No focal weakness, sensation grossly intact Psychiatric: Alert and oriented x 3, euthymic affect POD 0 Check CBC and BMP in AM Pain control Activity per Primary Surgeon PT /OT I spent a total of 30 minutes coordinating, documenting and providing care for this patient excluding time spent in performance of separately billed services History of Present Illness Requesting Physician: Dr. Wells Reason for Consultation: Postop medical management Attending Physician: Forrest Wells MD History of Present Illness This is an 78 yr old M who has a significant PMH of CKD 3, Osteoarthritis and hx of lyme disease who presents to elective knee arthroplasty by Dr. Wells. This is his first joint replacement surgery. He was having significant difficulty walking and felt like his knee was going to give out on him. He always required a walking stick for balance and so he was hoping this replacement will improve that. He is otherwise healthy at baseline. Typically he is very active at baseline. Currently he is hungry since he had nothing to eat since midnight. He denies f/c/s, chest pain, sob, dizziness, lightheaded, n/v/d, abd pain. He currently doesn't have any knee pain. Allergies Allergy/AdvReac Type Severity Reaction Status Date / Time Penicillins Allergy Severe Hives Verified 09/05/23 09:40 shellfish derived Allergy Severe Hives Verified 09/05/23 09:40 Home Medications Medication Instructions Recorded Confirmed Type tramadol 1 dose PO DAILY PRN Pain 08/23/23 09/05/23 History Patient History Medical History History of claustrophobia History of COVID-19 03/2022- mild flu symptoms, treated with paxlovid > no current issues Hx of Lyme disease , no current issues Hx of [place] spotted fever 2011 Osteoarthritis Surgical History History of tonsillectomy History of cataract surgery left S/P lumbar laminectomy H/O lumbar discectomy H/O tooth extraction x2 07/2023 Family History Other No family history of adverse response to anesthesia Social History Smoking Status: Former smoker Tobacco Type: Cigarettes Smoking End Date: ; Second Hand Exposure: No; Do You Dip or Chew Tobacco: No; Tobacco Cessation Education Requested by Patient: No Hx Alcohol Use: No Hx Substance Use: No Preferred Language: Telugu Communication Ability: Effective Cma Required: No Beliefs That Will Affect Care: None Current Living Situation: Spouse Other Information That Helps Us Care for You: No Feels Safe at Home: Yes Safety Concerns: Feels Safe At This Time Assistive Devices: Glasses Assistive Devices Comment: dental implants Review of Systems Review of Systems: All systems reviewed & are unremarkable except as noted in HPI & below Physical Exam Physical Exam: please refer to Dr. Maria addendum for physical exam findings. Results & Data Vital Signs (Past 12 Hours) Vital Signs Temp Pulse Pulse Resp BP Pulse Ox O2 Del Method 09/05/23 16:45 36.4 C L 89 18 132/77 96 Room Air 09/05/23 16:17 36.6 C 89 18 147/76 H 95 Room Air 09/05/23 15:45 36.7 C 94 H 20 135/72 99 Room Air 09/05/23 15:25 36.3 C L 88 12 146/93 H 95 Room Air 09/05/23 15:15 85 18 119/68 96 Room Air 09/05/23 15:05 86 20 113/62 95 Room Air 09/05/23 14:55 85 16 112/65 98 Oxymask 09/05/23 14:49 36.1 C L 80 12 95/52 L 96 Oxymask 09/05/23 09:40 36.7 C 114 H 22 150/95 H 99 Room Air O2 Flow Rate 09/05/23 16:45 09/05/23 16:17 09/05/23 15:45 09/05/23 15:25 09/05/23 15:15 09/05/23 15:05 09/05/23 14:55 4 09/05/23 14:49 4 09/05/23 09:40 Diagnostic Findings Knee X-Ray 09/05/23 14:50 TWO VIEWS RIGHT KNEE CLINICAL HISTORY: Postoperative examination. FINDINGS: AP and crosstable lateral portable views of the right knee are obtained. A right knee arthroplasty is in near anatomic alignment. There has been undersurface remodeling of the patella. No acute fracture is seen. There are expected postoperative changes around the knee including skin clips, a surgical drain, soft tissue edema, and subcutaneous gas. IMPRESSION: Expected postoperative changes status post right knee arthroplasty. No acute fracture is seen. ACT 112: Negative or not required by law. Electronically signed by: Garett Mckoy M.D. 09/05/2023 3:16 PM Medications Administered Current Inpatient Medications Acetaminophen (Acetaminophen 500 Mg Tab) 1,000 mg PO Q8 IKER Stop: 10/05/23 21:59 Aspirin (Aspirin 81 Mg Ectab) 81 mg PO BID IKER Stop: 10/05/23 20:59 Bisacodyl (Bisacodyl 10 Mg Supp) 10 mg SD DAILY PRN PRN Reason: Constipation Stop: 10/05/23 15:40 Celecoxib (Celebrex 200 Mg Cap) 200 mg PO BID [facility] Stop: 10/05/23 20:59 Docusate Sodium (Docusate Sodium 100 Mg Cap) 100 mg PO BID [facility] Stop: 10/05/23 20:59 Hydromorphone HCl (Hydromorphone Inj 0.5 Mg/0.5 Ml Syr) 0.5 mg IV Q4H PRN PRN Reason: Pain or Pre PT Stop: 09/19/23 15:40 Sodium Chloride (Nss) 1,000 mls @ 100 mls/hr IV .Q10H [facility] Stop: 09/06/23 06:00 Last Admin: 09/05/23 15:55 Dose: 100 mls/hr Vancomycin HCl 1,500 mg/ (Sodium Chloride) 530 mls @ 200 mls/hr IV Q12H [facility] Stop: 09/06/23 00:38 Magnesium Hydroxide (Magnesium Hydroxide Susp 30 Ml Udc) 30 ml PO Q6H PRN PRN Reason: Constipation Stop: 10/05/23 15:40 Metoclopramide HCl (Metoclopramide Hcl Inj 5 Mg/Ml 2 Ml Vial) 10 mg IV Q6H PRN PRN Reason: Nausea And Vomiting Stop: 10/05/23 15:40 Multivitamins (Multivitamin Tab) 1 tab PO QAM [facility] Stop: 10/06/23 08:59 Naloxone HCl (Naloxone Hcl 0.4 Mg/1 Ml Vial/Carp) 0.1 mg IV Q5M PRN PRN Reason: Oversedation/Resp Depression Stop: 10/05/23 15:40 Ondansetron HCl (Ondansetron Inj 2 Mg/Ml 2 Ml Vial) 4 mg IV Q6H PRN PRN Reason: Nausea And Vomiting Stop: 10/05/23 15:40 Oxycodone HCl (Oxycodone Hcl Ir 5 Mg Tab (Immediate Release)) 5 - 10 mg PO Q4H PRN PRN Reason: Pain or Pre PT Stop: 09/19/23 15:40 Sennosides (Senna 8.6 Mg Tab) 17.2 mg PO HS [facility] Stop: 10/05/23 20:59 Tamsulosin HCl (Tamsulosin Hcl 0.4 Mg Cap) 0.4 mg PO QAM PRN PRN Reason: UNABLE to void Stop: 10/05/23 15:40
[2023-09-05] MEDS: DOCUSATE SODIUM 100 MG CAP PO SCH ×2 (19:50→21:49)
[2023-09-05] MEDS: SENNA 8.6 MG TAB PO SCH ×2 (19:50→21:49)
[2023-09-05] MEDS: CeleBREX 200 MG CAP PO SCH (19:51)
[2023-09-05] MEDS: ASPIRIN 81 MG ECTAB PO SCH (19:51)
[2023-09-05] MEDS: ACETAMINOPHEN 500 MG TAB PO SCH (21:50)
[2023-09-05] MEDS ORDERED: VANCOMYCIN HCL 1,500 MG in SODIUM CHLORIDE 0.9% 500 ML IV SCH (22:00)
[2023-09-06] MEDS: oxyCODONE HCL IR 5 MG TAB (IMMEDIATE RELEASE) PO PRN ×2 (03:30→07:37)
[2023-09-06] MEDS: SODIUM CHLORIDE 0.9% 1,000 ML IV SCH (03:31)
[2023-09-06] MEDS: ACETAMINOPHEN 500 MG TAB PO SCH (05:12)
--- NOTE | 2023-09-06 07:34 | Orthopedic Progress Note ---
Date of Service September 06, 2023 Assessment & Plan (1) Status post right knee replacement: Plan: POD#1 right TKA -PT/OT -Pain management as writtent -DVT prophylaxis-SCDs, TEDs, ASA 81mg BID -AM labs pending -D/C planning-Plan on discharge home with HHPT. Plan on d/c today pending therapy evals and labs. Admission and Anticipated Discharge Date Admission Date: September 05, 2023 Subjective Patient feeling well this morning. Minimal pain. He is frustrated about unsuccessful attempts to draw blood yesterday. No other complaints. Denies chest pain, sob, dizziness, SAMUEL, n/v/d. Review of Systems Review of Systems: All systems reviewed & are unremarkable except as noted in Subjective Physical Exam Physical Exam: Right knee: Dressing is c/d/i. Toes mobile with good DF. No calf tenderness. Able to do SLR. Distally n/v status and sensation grossly intact. Results & Data Vital Signs (Past 12 Hours) Vital Signs Temp Pulse Pulse Resp BP Pulse Ox O2 Del Method 09/06/23 04:30 130/76 09/06/23 03:40 36.6 C 86 18 95 Room Air 09/05/23 22:12 36.4 C L 93 H 18 151/79 H 96 Room Air
[2023-09-06] MEDS ORDERED: MULTIVITAMIN TAB PO SCH (09:00)
[2023-09-06] MEDS: CeleBREX 200 MG CAP PO SCH (09:17)
[2023-09-06] MEDS: ASPIRIN 81 MG ECTAB PO SCH (09:17)
[2023-09-06] MEDS: DOCUSATE SODIUM 100 MG CAP PO SCH (09:17)
--- NOTE | 2023-09-07 09:05 | Discharge Summary ---
Date of Service September 07, 2023 Admission HPI Per Admitting Provider 78-year-old male with no significant past medical history who presents with ongoing right knee pain. Pain is interfering with his daily activities. He has failed conservative measures and wishes to proceed with surgery. Patient denies headaches, sweats, fevers, chills, double vision, blurred vision, cough, sore throat, dysphagia, chest pain, sob, wheezing, n/v/d/c, numbness, tingling, fatigue, urinary symptoms, mood disorders. ROS positive for right knee pain and stiffness. Admission Exam Per Admitting Provider Constitutional: well developed and well nourished; no acute distress Eyes: PERRL, conjunctivae normal, anicteric sclerae ENMT: external ear and nose normal, oropharynx normal Neck: trachea midline, no thyromegaly Respiratory: normal respiratory effort, lungs clear to auscultation Cardiovascular: RRR, no murmur, no edema Musculoskeletal: Right knee: Varus alignment. Mild effusion. Tenderness medial joint line. There is crepitation with range of motion. Range of motion is 10 to 120 degrees. Stable to valgus and varus stress test. Skin: no rashes, warm and dry Neurologic: patellar DTR's 2+ bilat, sensation intact Psychiatric: A+Ox3, euthymic affect Principal Diagnosis Right knee osteoarthritis Discharge Exam Right knee: Dressing is c/d/i. Toes mobile with good DF. No calf tenderness. Able to do SLR. Distally n/v status and sensation grossly intact. Discharge Data Allergies Allergy/AdvReac Type Severity Reaction Status Date / Time Penicillins Allergy Severe Hives Verified 09/05/23 09:40 shellfish derived Allergy Severe Hives Verified 09/05/23 09:40 Consultations 09/03/23 12:11 Consult Hospitalist Routine Procedures Performed Operation Date: 09/05/23 12:40 Actual Procedures p Right Total Knee Arthroplasty(Right) - Forrest Wells MD Ordered Studies 09/05/23 05:00 US - OR guided needle placemen Routine Hospital Course (1) Status post right knee replacement: POD#1 right TKA -PT/OT -Pain management as writtent -DVT prophylaxis-SCDs, TEDs, ASA 81mg BID -AM labs pending -D/C planning-Plan on discharge home with HHPT. Plan on d/c today pending therapy evals and labs. Addendum-Patient refused AM labs. Will obtain as an outpatient. Lab Results 09/05/23 09/05/23 Range/Units 09:48 14:54 POC Glucose 146 H (70-99) mg/dl Albumin 4.1 (3.4-5.0) gm/dl Blood Type O Negative Antibody Screen NEGATIVE Total Time Total Time Spent Total Time Spent (In Minutes): 20 Discharge Plan Discharge Items Patient Disposition: Home - Home Health Services Reason For Visit: POST OP Discharge Diagnosis: Right knee osteoarthritis Activity: Per Instructions section Non-emergency contact: Surgeon Call non-emergency contact if: you have any medication questions, your pain is not controlled, you have a fever, your temperature is above 101, your wound has increased redness and your wound has increased drainage Follow-up/Referrals: Cecil Burkett PA-C [Primary Care Provider] - Diet: Regular Addtl Attending Provider Instructions: ACTIVITY RECOMMENDATIONS: SELF CARE INSTRUCTIONS AFTER TOTAL KNEE REPLACEMENT A. You may need to continue a physical therapy program after discharge from the hospital. There are several options available to you. Your doctor will assist you in selecting the best one for you. 1. An out-patient facility 2 to 3 times a week for therapy or home therapy. 2. Continue working on all exercises taught to you in the hospital. Your goals should be to increase bending of your knee to 90 degrees and beyond and to fully straighten your knee. B. You may progress at your own pace from walking with a walker or crutches to a cane; then to no assistive devices. C. Make walking a part of your daily routine. Be up as much as comfortable with rest periods throughout the day. Rest with leg elevation is very important. Use the ice wrap frequently for the first 3-4 weeks. D. There are no restrictions on activities. You may ride in a car, shop, participate in geophysical laboratory director and all social activities. E. Wear the long elastic stockings (JODY hose) 20 hours a day for 2 weeks after surgery. They can be removed several times a day for laundering and for a bath. F. You may shower, no tub baths until cleared by your doctor. SPECIAL CARE INSTRUCTIONS: VERY IMPORTANT TO READ AND REVIEW A. There are a few signs you need to watch for after you are home. Call [facility] if you notice any of the followin. Increased severe knee pain. Some pain is expected especially when you exercise. 2. Increased swelling in your leg or knee; pain or swelling of the calf muscle in either lower leg. 3. Any fluid drainage from the incision. 4. Shortness of breath or chest pain. B. Please call [facility] at if you have any concerns or questions about your operation or recovery. The doctor or his nurse will return your call promptly. C. You must take antibiotics before dental work, bladder, bowel or other surgery. Your doctor will provide you with a permanent care to carry describing this precaution. IMPORTANT: * REMEMBER TO TAKE ASPIRIN, 81 MG, TWICE DAILY FOR 4 WEEKS UNLESS OTHERWISE DIRECTED. THIS IS YOUR BLOOD THINNER. * HIGH RISK PATIENTS MAY BE PRESCRIBED A STRONGER BLOOD THINNER. THIS WILL BE PROVIDED AT DISCHARGE. * CALL IF INCREASED PAIN, REDNESS, DRAINAGE OR FEVER GREATER THAT 101. * WEAR JODY HOSE 20 HOURS PER DAY FOR 2 WEEKS. There is a large suction dressing covering your incision. This will help pull any excess drainage from the wound and allow your incision to heal properly. You may shower with this if you can keep the unit outside of the shower. If any bleeding or leakage is noted please call your doctor's office. This will remain on your incision for 7 days and then should be removed. This can be done yourself or by the home nursing staff if applicable. The entire unit is disposable once removed. Once removed, keep incision clean and dry. If redness or drainage is noted, please call your surgeon. IF INCISION IS LEAKING THROUGH DRESSING, CALL THE OFFICE . FOLLOW UP VISIT: If appointment is not already scheduled: Please call [facility] to make a follow-up appointment for 2 weeks after your surgery at . Stand-Alone Forms: My [employer], Smoking Cessation Medications and DC Order Prescriptions: New celecoxib [Celebrex] 200 mg Capsule 200 mg PO BID Qty: 60 0RF aspirin 81 mg Tablet,Delayed Release (Dr/Ec) 81 mg PO BID Qty: 60 0RF acetaminophen [Tylenol Extra Strength] 500 mg Tablet 1,000 mg PO Q8 Qty: 60 0RF oxycodone 5 mg Tablet 5 - 10 mg PO .Q4h-6h MDD 6 PRN (Reason: pain) Qty: 30 0RF Rx Instructions: Ongoing therapy, Dr. Wells supervising Discontinued tramadol 1 dose PO DAILY PRN (Reason: Pain) Admission Data Admit Date/Time: 09/05/23 14:50 Attending Provider: Forrest Wells Admit Provider: Forrest Wells Primary Care Provider: Cecil Burkett Other Providers: Lucero Barcenas; Marley,Home Health Other Interventions: Discharge Summary Assessment (RN) Last Done: 09/06/23 10:05
== END 2023-09-06 11:00 | disposition home health service (06) ==
LOC: ASU 09:20 → 3E 09:20